=== PATIENT | female | born 1930 | race Caucasian/White ===

== ENCOUNTER 2017-10-15 15:22 | Inpatient (IN) | payer OTHER, BC ==
[~2017-10-15] VITALS: Ht 160 cm; Wt 74.2 kg
[2017-10-15 16:42] LABS: HEMATOCRIT 34.5 % (36.0-46.0); HEMOGLOBIN 10.8 G/DL (11.9-15.5); MCH 24.6 PG (29.0-34.0); MCHC 31.3 G/DL (30.0-36.0); MCV 78.6 FL (83-99); PLATELET COUNT 230 K/uL (156-360); RBC DIS.WIDTH-CV 17.6 % (11.8-14.6); RBC DIS.WIDTH-SD 49.8 % (39-53); RED BLOOD COUNT 4.39 M/uL (3.80-5.20); WHITE BLOOD COUNT 4.9 K/uL (4.1-10.2)
[2017-10-15 17:25] LABS: ALBUMIN 3.8 G/DL (3.2-4.8); CHLORIDE 102 MEQ/L (99-109); POTASSIUM 3.8 MEQ/L (3.7-5.4); SODIUM 137 MEQ/L (136-147); TOTAL BILIRUBIN 0.6 MG/DL (0.0-1.0)
[2017-10-15 17:31] LABS: ALKALINE PHOSPHATASE 95 IU/L (3-129); ALT (GPT) 15 IU/L (3-49); AST (GOT) 20 IU/L (2-34); CREATININE 1.2 MG/DL (0.6-1.3); GFR ESTIMATE (CALCULATED) 45 mL/min/; GLUCOSE 107 mg/dL (70-99); TOTAL PROTEIN 6.9 G/DL (6.4-8.3); UREA NITROGEN (BUN) 17 mg/dL (9-23)
[2017-10-15 17:35] LABS: TROP-I INTERPRETATION NEGATIVE; TROPONIN-I < 0.01 ng/mL (0.0-0.30)
[2017-10-15 17:48] LABS: ABS NEUTROPHIL COUNT 2.5; ATYPICAL LYMPHOCYTE 3.5 %; BURR CELLS 2+; EOSINOPHIL ABS CT 0; HYPOCHROMASIA 1+; LYMPHOCYTES 27.4 % (15.0-45.0); MONOCYTES 18.6 % (0-9.0); OVALOCYTES 2+; PLAT.SUFFICIENCY ADEQUATE; POIKILOCYTOSIS 2+; SEG.NEUTROPHILS 42.5 % (46.0-76.0)
[2017-10-15 18:53] LABS: APPEARANCE CLEAR ((CLEAR)); BILIRUBIN NEGATIVE; BLOOD SMALL; COLOR YELLOW ((YELLOW)); GLUCOSE (STRIP) NEGATIVE; KETONES NEGATIVE; LEUKOCYTES SMALL; NITRITE NEGATIVE; PROTEIN (STRIP) NEGATIVE; SPECIFIC GRAVITY 1.014 (1.000-1.030); UROBILINOGEN 0.2 MG/DL (0.2-1.0)
[2017-10-15] MEDS ORDERED: TOPROL XL100 MG PO (18:56)
[2017-10-15] MEDS ORDERED: ZOLOFT50 MG PO (18:56)
[2017-10-15] MEDS ORDERED: PRAVACHOL40 MG PO (18:56)
[2017-10-15] MEDS ORDERED: VITAMIN D31000 UNI2 PO (18:57)
[2017-10-15] MEDS ORDERED: COZAAR50 MG PO (18:57)
[2017-10-15] MEDS ORDERED: ATIVAN1 MG PO (18:57)
[2017-10-15] MEDS ORDERED: ASPERCREME 1035.4 GM TP (18:58)
[2017-10-15] MEDS ORDERED: VISINE DRY EYE15 ML BOTH EYES (18:58)
[2017-10-15 19:11] LABS: BACTERIA NONE SEEN /HPF; EPITHELIAL CELLS RARE /HPF; MUCUS TRACE /LPF; RED BLOOD CELLS 0-5 /HPF (0-5); UCUL ADDED? NO; WHITE BLOOD CELLS 0-5 /HPF (0-5)
[2017-10-15 19:55] LABS: INTER. NORMALIZED RATIO 1.2
[2017-10-15 22:49] VITALS: BP 143/93
[2017-10-15 22:55] LABS: MAGNESIUM 1.7 mg/dl (1.3-2.7)
[2017-10-15 23:01] LABS: HDL CHOLESTEROL 38 MG/DL (Desirable>=50); LDL CHOLESTEROL 48 mg/dL (Desirable<100); NON-HDL CHOLESTEROL 59 mg/dL (Desirable<160); TOTAL CHOLESTEROL 97 mg/dL (Desirable<200); TRIGLYCERIDES 57 MG/DL (Normal: <150)
[2017-10-15 23:09] LABS: THYROTROPIN (TSH) 3.5 MIU/L (0.4-5.5)
[2017-10-16] VITALS (7 sets, daily range): BP systolic 121–159; BP diastolic 70–104
[2017-10-16 00:51] LABS: TROP-I INTERPRETATION NEGATIVE; TROPONIN-I < 0.01 ng/mL (0.0-0.30)
[2017-10-16 06:02] LABS: HEMATOCRIT 29.8 % (36.0-46.0); HEMOGLOBIN 9.3 G/DL (11.9-15.5); MCH 24.5 PG (29.0-34.0); MCHC 31.2 G/DL (30.0-36.0); MCV 78.6 FL (83-99); PLATELET COUNT 181 K/uL (156-360); RBC DIS.WIDTH-CV 17.4 % (11.8-14.6); RBC DIS.WIDTH-SD 50.1 % (39-53); RED BLOOD COUNT 3.79 M/uL (3.80-5.20)
[2017-10-16 06:43] LABS: TROP-I INTERPRETATION NEGATIVE; TROPONIN-I < 0.01 ng/mL (0.0-0.30)
[2017-10-17 00:10] VITALS: BP 136/89
[2017-10-17 03:48] VITALS: BP 117/73
[2017-10-17 07:10] VITALS: BP 128/92
[2017-10-17] MEDS ORDERED: MS CONTIN,ORAMO15 M1 PO (11:44)
[2017-10-17] MEDS ORDERED: ELIQUIS2.5 MG PO (11:44)
== END 2017-10-17 14:11 | disposition home or self-care (01) | DRG 552 ==
LOC: EME 15:22 → EDOF 20:59 → 4EAST 20:59 → ENRESERV 21:16 → 4EAST 22:21 → ENRESERV 10-16 20:06 → CANRESERV 10-16 20:06 → ENRESERV 10-16 20:19 → 4EAST 10-17 14:11
PROVIDERS: Emergency Medicine; Hospitalist
DX: S22.088A Other fracture of T11-T12 vertebra, initial encounter for closed fracture (principal); W01.0XXA Fall on same level from slipping, tripping and stumbling without subsequent striking against object, initial encounter; I48.91 Unspecified atrial fibrillation; M51.36 Other intervertebral disc degeneration, lumbar region; R60.0 Localized edema; R26.9 Unspecified abnormalities of gait and mobility; I10 Essential (primary) hypertension; E78.5 Hyperlipidemia, unspecified; M85.861 Other specified disorders of bone density and structure, right lower leg; G89.29 Other chronic pain; D64.9 Anemia, unspecified; Z91.81 History of falling; Z86.010 Personal history of colon polyps; Z90.710 Acquired absence of both cervix and uterus
CPT/HCPCS: 71045; 71275; 72100; 72148; 73564; 80053; 80061; 81003; 83605; 83735; 83880; 84443; 84484; 85025; 85027; 85379; 85610; 87040; 93005; 99281; 99285; J1885; J2270; J7050

== ENCOUNTER 2017-11-05 13:39 | Inpatient (IN) | payer OTHER, BC ==
[~2017-11-05] VITALS: Ht 160 cm; Wt 95.9 kg
[~2017-11-05 13:39] MED LIST: ASPERCREME 1035.4 GM TP; ATIVAN1 MG PO; COZAAR50 MG PO; ELIQUIS2.5 MG PO; MS CONTIN,ORAMO15 M1 PO; PRAVACHOL40 MG PO; TOPROL XL100 MG PO; VISINE DRY EYE15 ML BOTH EYES; VITAMIN D31000 UNI2 PO; ZOLOFT50 MG PO
[2017-11-05 14:53] LABS: ALBUMIN 3.2 g/dL (3.2-4.8); CHLORIDE 103 mEq/L (99-109); POTASSIUM 4.4 mEq/L (3.7-5.4); SODIUM 136 mEq/L (136-147)
[2017-11-05 14:55] LABS: GLUCOSE 107 mg/dL (70-99)
[2017-11-05 14:56] LABS: TOTAL PROTEIN 6.2 g/dL (6.4-8.3)
[2017-11-05 14:57] LABS: TOTAL BILIRUBIN 1.8 mg/dL (0.0-1.0)
[2017-11-05 14:58] LABS: BASOPHIL (%) 0 % (0-1); EOSINOPHIL (%) 0.1 % (0-5); HEMATOCRIT 29.4 % (36.0-46.0); HEMOGLOBIN 9.5 G/DL (11.9-15.5); IMMATURE GRANULOCYTE (%) 1.9 % (0.0-0.7); LYMPHOCYTE (%) 14.3 % (15-42); LYMPHOCYTE COUNT 1.3 K/uL (1.0-2.8); MCH 23.9 PG (29.0-34.0); MCHC 32.3 G/DL (30.0-36.0); MONOCYTE (%) 29.1 % (3-12); MONOCYTE COUNT 2.6 K/uL (0-0.8); NEUTROPHIL (%) 54.6 % (45-76); NEUTROPHIL COUNT 4.9 K/uL (1.8-6.4); NRBC (%) 0.3 /100 WBC (0-0); PLATELET COUNT 156 K/uL (156-360); RBC DIS.WIDTH-CV 18.3 % (11.8-14.6); RBC DIS.WIDTH-SD 48.3 % (39-53); RED BLOOD COUNT 3.98 M/uL (3.80-5.20)
[2017-11-05 14:59] LABS: ALKALINE PHOSPHATASE 136 IU/L (3-129); CREATININE 2.4 mg/dL (0.6-1.3); GFR ESTIMATE (CALCULATED) 20 mL/min/
[2017-11-05 15:00] LABS: UREA NITROGEN (BUN) 55 mg/dL (9-23)
[2017-11-05 15:01] LABS: AST (GOT) 48 IU/L (2-34)
[2017-11-05 15:02] LABS: ALT (GPT) 42 IU/L (3-49); MCV 73.9 FL (83-99)
[2017-11-05 15:06] LABS: TROP-I INTERPRETATION NEGATIVE; TROPONIN-I < 0.01 ng/mL (0.0-0.30)
[2017-11-05] MEDS ORDERED: BUTRANS1 EAC1 TD (17:03)
[2017-11-05] MEDS ORDERED: [UNRECOGNIZED DRUG - OTHER] PO (17:06)
[2017-11-05 19:15] VITALS: BP 98/62
[2017-11-05 20:00] VITALS: BP 98/62
[2017-11-05 22:00] VITALS: BP 92/68
[2017-11-06] VITALS: BP 98/60
[2017-11-06 01:27] LABS: COMMENTS - BLOOD GASES C; DEVICE NC; O2 FLOW 4 L/MIN; SITE LR ALINE
[2017-11-06 01:28] LABS: BICARBONATE 10.9 mEq/L (22-26); CARBOXY HGB 1.2 % (0-5); O2 SATURATION (CALCULATED) 96.9 % (95-99); PCO2 26 mm Hg (35-45); PO2 165 mm Hg (80-100); pH 7.23 (7.35-7.45)
[2017-11-06 01:29] LABS: BASE EXCESS -15.2 mEq/L (-3 to +3)
[2017-11-06 01:46] LABS: CHLORIDE 104 mEq/L (99-109); HEMATOCRIT 32.1 % (36.0-46.0); HEMOGLOBIN 10.4 G/DL (11.9-15.5); MCH 24.1 PG (29.0-34.0); MCHC 32.4 G/DL (30.0-36.0); MCV 74.5 FL (83-99); NRBC (%) 0.7 /100 WBC (0-0); PLATELET COUNT 176 K/uL (156-360); RBC DIS.WIDTH-CV 18.6 % (11.8-14.6); RED BLOOD COUNT 4.31 M/uL (3.80-5.20); SODIUM 134 mEq/L (136-147); WHITE BLOOD COUNT 16.5 K/uL (4.1-10.2)
[2017-11-06 01:52] LABS: GFR ESTIMATE (CALCULATED) 16 mL/min/
[2017-11-06 01:53] LABS: UREA NITROGEN (BUN) 58 mg/dL (9-23)
[2017-11-06 01:54] LABS: TROP-I INTERPRETATION NEGATIVE; TROPONIN-I < 0.01 ng/mL (0.0-0.30)
[2017-11-06 02:00] VITALS: BP 48/32
[2017-11-06 02:06] LABS: GLUCOSE 39 mg/dL (70-99); POTASSIUM 6.1 mEq/L (3.7-5.4)
[2017-11-06 02:25] LABS: CARBOXY HGB 0.8 % (0-5); COMMENTS - BLOOD GASES VBG; O2 SATURATION (CALCULATED) 47.5 % (95-99); PCO2 38 mm Hg (35-45); PO2 31 mm Hg (80-100); SITE DISTAL CENTRAL; pH 7.16 (7.35-7.45)
[2017-11-06 02:26] LABS: BASE EXCESS -14.2 mEq/L (-3 to +3); BICARBONATE 13.5 mEq/L (22-26); METHEMOGLOBIN 0.7 % (0-1.5)
[2017-11-06 02:29] LABS: ABS NEUTROPHIL COUNT 11.7; ANISOCYTOSIS 2+; ATYPICAL LYMPHOCYTE 0.9 %; BAND NEUTROPHILS 1.8 % (0-8.0); BURR CELLS 3+; EOSINOPHIL ABS CT 0; GIANT PLATELETS 2+; MACROCYTES 2+; MONOCYTES 20.3 % (0-9.0); MYELOCYTES 1.8 %; OVALOCYTES 1+; PLAT.SUFFICIENCY ADEQUATE; POIKILOCYTOSIS 3+
[2017-11-06 03:33] LABS: APPEARANCE TURBID ((CLEAR)); BILIRUBIN NEGATIVE; BLOOD NEGATIVE; COLOR AMBER ((YELLOW)); GLUCOSE (STRIP) NEGATIVE; KETONES NEGATIVE; LEUKOCYTES NEGATIVE; NITRITE NEGATIVE; PROTEIN (STRIP) 100; SPECIFIC GRAVITY 1.015 (1.000-1.030)
[2017-11-06 03:37] LABS: BACTERIA RARE /HPF; EPITHELIAL CELLS RARE /HPF; HYALINE CASTS 30-40 /LPF; MUCUS 2+ /LPF; RED BLOOD CELLS 0-5 /HPF (0-5); UCUL ADDED? NO; WHITE BLOOD CELLS NONE SEEN /HPF (0-5)
[2017-11-06 04:00] VITALS: BP 98/68
[2017-11-06 04:34] LABS: LYMPHOCYTES 6.2 % (15.0-45.0)
[2017-11-06 04:38] LABS: COMMENTS - BLOOD GASES VBG; DEVICE NC; O2 FLOW 2 L/MIN; PCO2 33 mm Hg (35-45); PO2 37 mm Hg (80-100); SITE CENTRAL LINE; pH 7.27 (7.35-7.45)
[2017-11-06 04:39] LABS: BASE EXCESS -10.7 mEq/L (-3 to +3); BICARBONATE 15.2 mEq/L (22-26); CARBOXY HGB 1.4 % (0-5); METHEMOGLOBIN 0.7 % (0-1.5); O2 SATURATION (CALCULATED) 64.1 % (95-99)
[2017-11-06 04:40] LABS: CHLORIDE 102 mEq/L (99-109); POTASSIUM 4.9 mEq/L (3.7-5.4); SODIUM 138 mEq/L (136-147)
[2017-11-06 04:41] LABS: BASOPHIL (%) 0.1 % (0-1); EOSINOPHIL (%) 0 % (0-5); HEMATOCRIT 28.2 % (36.0-46.0); HEMOGLOBIN 9.2 G/DL (11.9-15.5); IMMATURE GRANULOCYTE (%) 4.2 % (0.0-0.7); LYMPHOCYTE (%) 1.4 % (15-42); LYMPHOCYTE COUNT 0.4 K/uL (1.0-2.8); MAGNESIUM 1.7 mg/dL (1.3-2.7); MCH 24.4 PG (29.0-34.0); MCHC 32.6 G/DL (30.0-36.0); MCV 74.8 FL (83-99); MONOCYTE (%) 28.7 % (3-12); MONOCYTE COUNT 7.1 K/uL (0-0.8); NEUTROPHIL (%) 65.6 % (45-76); NEUTROPHIL COUNT 16.2 K/uL (1.8-6.4); NRBC (%) 0.5 /100 WBC (0-0); PLATELET COUNT 155 K/uL (156-360); RBC DIS.WIDTH-CV 18.5 % (11.8-14.6); RBC DIS.WIDTH-SD 49.4 % (39-53); RED BLOOD COUNT 3.77 M/uL (3.80-5.20); WHITE BLOOD COUNT 24.8 K/uL (4.1-10.2)
[2017-11-06 04:46] LABS: CREATININE 3.1 mg/dL (0.6-1.3); GFR ESTIMATE (CALCULATED) 15 mL/min/; PHOSPHORUS 6.2 mg/dL (2.5-4.9)
[2017-11-06 04:47] LABS: UREA NITROGEN (BUN) 58 mg/dL (9-23)
[2017-11-06 04:48] LABS: GLUCOSE 114 mg/dL (70-99)
[2017-11-06 06:27] LABS: COMMENTS - BLOOD GASES VBG; DEVICE NC; O2 FLOW 2 L/MIN; PCO2 36 mm Hg (35-45); PO2 35 mm Hg (80-100); SITE CENTRAL LINE; TOTAL RESP RATE 16 resp/min; pH 7.27 (7.35-7.45)
[2017-11-06 06:28] LABS: BASE EXCESS -9.6 mEq/L (-3 to +3); BICARBONATE 16.5 mEq/L (22-26); METHEMOGLOBIN 1.1 % (0-1.5)
[2017-11-06 20:00] VITALS: BP 101/56
[2017-11-07 06:34] LABS: HEMATOCRIT 25.2 % (36.0-46.0); MCH 23.6 PG (29.0-34.0); MCHC 31.7 G/DL (30.0-36.0); MCV 74.3 FL (83-99); NRBC (%) 0.3 /100 WBC (0-0); RBC DIS.WIDTH-CV 18.4 % (11.8-14.6); RBC DIS.WIDTH-SD 48.5 % (39-53); RED BLOOD COUNT 3.39 M/uL (3.80-5.20); WHITE BLOOD COUNT 14.8 K/uL (4.1-10.2)
[2017-11-07 06:43] LABS: ALBUMIN 2.9 G/DL (3.2-4.8); ALKALINE PHOSPHATASE 169 IU/L (3-129); CHLORIDE 100 MEQ/L (99-109); CREATINE KINASE 102 IU/L (1-294); GLUCOSE 101 mg/dL (70-99); MAGNESIUM 1.9 mg/dl (1.3-2.7); PHOSPHORUS 4.7 mg/dL (2.5-4.9); POTASSIUM 4.5 MEQ/L (3.7-5.4); SODIUM 137 MEQ/L (136-147); TOTAL BILIRUBIN 2.6 MG/DL (0.0-1.0); TOTAL PROTEIN 4.7 G/DL (6.4-8.3); UREA NITROGEN (BUN) 62 mg/dL (9-23)
[2017-11-07 06:47] LABS: CREATININE 3.8 MG/DL (0.6-1.3); GFR ESTIMATE (CALCULATED) 12 mL/min/
[2017-11-07 06:57] LABS: ALT (GPT) 1417 IU/L (3-49); AST (GOT) 3566 IU/L (2-34)
[2017-11-07 07:00] VITALS: BP 115/61
[2017-11-07 07:14] LABS: BASOPHIL (%) 0.1 % (0-1); EOSINOPHIL (%) 0.1 % (0-5); IMMATURE GRANULOCYTE (%) 1.8 % (0.0-0.7); LYMPHOCYTE (%) 9.7 % (15-42); LYMPHOCYTE COUNT 1.4 K/uL (1.0-2.8); MONOCYTE (%) 19.5 % (3-12); MONOCYTE COUNT 2.9 K/uL (0-0.8); NEUTROPHIL (%) 68.8 % (45-76); NEUTROPHIL COUNT 10.2 K/uL (1.8-6.4)
[2017-11-07 07:26] LABS: PLATELET COUNT 94 K/uL (156-360)
[2017-11-08 06:26] LABS: HEMATOCRIT 25.4 % (36.0-46.0); HEMOGLOBIN 8.2 G/DL (11.9-15.5); MCH 23.6 PG (29.0-34.0); MCHC 32.3 G/DL (30.0-36.0); NRBC (%) 0.3 /100 WBC (0-0); RBC DIS.WIDTH-SD 46.8 % (39-53); RED BLOOD COUNT 3.48 M/uL (3.80-5.20); WHITE BLOOD COUNT 9.1 K/uL (4.1-10.2)
[2017-11-08 07:18] LABS: BASOPHIL (%) 0.1 % (0-1); EOSINOPHIL (%) 0.5 % (0-5); EOSINOPHIL COUNT 0.1 K/uL (0-0.3); IMMATURE GRANULOCYTE (%) 2.6 % (0.0-0.7); LYMPHOCYTE (%) 14.2 % (15-42); LYMPHOCYTE COUNT 1.3 K/uL (1.0-2.8); MONOCYTE (%) 24.2 % (3-12); MONOCYTE COUNT 2.2 K/uL (0-0.8); NEUTROPHIL (%) 58.4 % (45-76); NEUTROPHIL COUNT 5.3 K/uL (1.8-6.4); PLAT.SUFFICIENCY DECREASED; PLATELET COUNT 93 K/uL (156-360)
[2017-11-08 08:09] LABS: ALBUMIN 2.9 G/DL (3.2-4.8); ALKALINE PHOSPHATASE 155 IU/L (3-129); ALT (GPT) 834 IU/L (3-49); CHLORIDE 101 MEQ/L (99-109); CREATININE 4.4 MG/DL (0.6-1.3); GFR ESTIMATE (CALCULATED) 10 mL/min/; GLUCOSE 85 mg/dL (70-99); MAGNESIUM 1.7 mg/dl (1.3-2.7); PHOSPHORUS 4.3 mg/dL (2.5-4.9); POTASSIUM 4.2 MEQ/L (3.7-5.4); SODIUM 140 MEQ/L (136-147); TOTAL BILIRUBIN 2.5 MG/DL (0.0-1.0); TOTAL PROTEIN 4.2 G/DL (6.4-8.3); UREA NITROGEN (BUN) 73 mg/dL (9-23)
[2017-11-08 08:11] LABS: AST (GOT) 1307 IU/L (2-34)
[2017-11-08 17:04] VITALS: BP 128/89
[2017-11-08 19:00] VITALS: BP 121/87
[2017-11-08 20:00] VITALS: BP 117/83
[2017-11-08 21:00] VITALS: BP 110/68
[2017-11-08 22:00] VITALS: BP 118/75
[2017-11-08 23:00] VITALS: BP 121/71
[2017-11-09] VITALS (21 sets, daily range): BP systolic 104–137; BP diastolic 49–89
[2017-11-09 06:17] LABS: CHLORIDE 98 MEQ/L (99-109); CREATININE 4.8 MG/DL (0.6-1.3); DIRECT BILIRUBIN 1.1 mg/dL (0.0-0.3); GFR ESTIMATE (CALCULATED) 9 mL/min/; GLUCOSE 98 mg/dL (70-99); MAGNESIUM 1.8 mg/dl (1.3-2.7); POTASSIUM 4.4 MEQ/L (3.7-5.4); SODIUM 138 MEQ/L (136-147); TOTAL BILIRUBIN 2.5 MG/DL (0.0-1.0); TOTAL PROTEIN 4.8 G/DL (6.4-8.3); UREA NITROGEN (BUN) 75 mg/dL (9-23)
[2017-11-09 06:18] LABS: BASOPHIL (%) 0.1 % (0-1); EOSINOPHIL (%) 0.6 % (0-5); EOSINOPHIL COUNT 0.1 K/uL (0-0.3); HEMATOCRIT 28.3 % (36.0-46.0); HEMOGLOBIN 9.1 G/DL (11.9-15.5); IMMATURE GRANULOCYTE (%) 3.2 % (0.0-0.7); LYMPHOCYTE (%) 14.3 % (15-42); LYMPHOCYTE COUNT 1.4 K/uL (1.0-2.8); MCH 23.4 PG (29.0-34.0); MCHC 32.2 G/DL (30.0-36.0); MCV 72.8 FL (83-99); MONOCYTE (%) 27.2 % (3-12); MONOCYTE COUNT 2.6 K/uL (0-0.8); NEUTROPHIL (%) 54.6 % (45-76); NEUTROPHIL COUNT 5.2 K/uL (1.8-6.4); RBC DIS.WIDTH-CV 18.9 % (11.8-14.6); RED BLOOD COUNT 3.89 M/uL (3.80-5.20); WHITE BLOOD COUNT 9.5 K/uL (4.1-10.2)
[2017-11-09 06:24] LABS: ALKALINE PHOSPHATASE 210 IU/L (3-129); AST (GOT) 590 IU/L (2-34)
[2017-11-09 06:43] LABS: ALT (GPT) 631 IU/L (3-49)
[2017-11-09 07:01] LABS: DIGOXIN 1.1 ng/mL (0.8-2.0)
[2017-11-09 07:07] LABS: PLAT.SUFFICIENCY DECREASED; PLATELET COUNT 109 K/uL (156-360)
[2017-11-10] VITALS (11 sets, daily range): BP systolic 98–154; BP diastolic 50–94
[2017-11-10 05:53] LABS: BASOPHIL (%) 0.1 % (0-1); EOSINOPHIL (%) 0.7 % (0-5); EOSINOPHIL COUNT 0.1 K/uL (0-0.3); HEMATOCRIT 28.7 % (36.0-46.0); HEMOGLOBIN 9.2 G/DL (11.9-15.5); IMMATURE GRANULOCYTE (%) 3.5 % (0.0-0.7); LYMPHOCYTE (%) 13.7 % (15-42); LYMPHOCYTE COUNT 1.5 K/uL (1.0-2.8); MCH 23.4 PG (29.0-34.0); MCHC 32.1 G/DL (30.0-36.0); MCV 72.8 FL (83-99); MONOCYTE COUNT 3.6 K/uL (0-0.8); NEUTROPHIL COUNT 5.6 K/uL (1.8-6.4); NRBC (%) 0.2 /100 WBC (0-0); PLATELET COUNT 127 K/uL (156-360); RBC DIS.WIDTH-CV 18.6 % (11.8-14.6); RBC DIS.WIDTH-SD 48.3 % (39-53); RED BLOOD COUNT 3.94 M/uL (3.80-5.20); WHITE BLOOD COUNT 11.3 K/uL (4.1-10.2)
[2017-11-10 06:23] LABS: ALBUMIN 2.7 G/DL (3.2-4.8); ALKALINE PHOSPHATASE 193 IU/L (3-129); ALT (GPT) 429 IU/L (3-49); CHLORIDE 100 MEQ/L (99-109); CHLORIDE 99 MEQ/L (99-109); CREATININE 4.6 MG/DL (0.6-1.3); CREATININE 4.9 MG/DL (0.6-1.3); GFR ESTIMATE (CALCULATED) 10 mL/min/; GFR ESTIMATE (CALCULATED) 9 mL/min/; GLUCOSE 131 mg/dL (70-99); GLUCOSE 137 mg/dL (70-99); POTASSIUM 3.6 MEQ/L (3.7-5.4); SODIUM 138 MEQ/L (136-147); SODIUM 140 MEQ/L (136-147); TOTAL PROTEIN 4.5 G/DL (6.4-8.3); UREA NITROGEN (BUN) 70 mg/dL (9-23); UREA NITROGEN (BUN) 71 mg/dL (9-23)
[2017-11-10 06:29] LABS: POTASSIUM 3.4 MEQ/L (3.7-5.4)
[2017-11-10 06:30] LABS: AST (GOT) 242 IU/L (2-34)
[2017-11-11] VITALS (8 sets, daily range): BP systolic 122–140; BP diastolic 60–79
[2017-11-11 06:13] LABS: BASOPHIL (%) 0.1 % (0-1); EOSINOPHIL (%) 0.8 % (0-5); EOSINOPHIL COUNT 0.1 K/uL (0-0.3); HEMATOCRIT 24.2 % (36.0-46.0); HEMOGLOBIN 7.8 G/DL (11.9-15.5); IMMATURE GRANULOCYTE (%) 2.3 % (0.0-0.7); LYMPHOCYTE (%) 13.1 % (15-42); LYMPHOCYTE COUNT 1.2 K/uL (1.0-2.8); MCH 23.4 PG (29.0-34.0); MCHC 32.2 G/DL (30.0-36.0); MCV 72.7 FL (83-99); MONOCYTE (%) 40.3 % (3-12); MONOCYTE COUNT 3.7 K/uL (0-0.8); NEUTROPHIL (%) 43.4 % (45-76); PLATELET COUNT 115 K/uL (156-360); RBC DIS.WIDTH-CV 18.6 % (11.8-14.6); RBC DIS.WIDTH-SD 47.5 % (39-53); RED BLOOD COUNT 3.33 M/uL (3.80-5.20); WHITE BLOOD COUNT 9.1 K/uL (4.1-10.2)
[2017-11-11 06:15] LABS: CHLORIDE 100 MEQ/L (99-109); CREATININE 4.4 MG/DL (0.6-1.3); GFR ESTIMATE (CALCULATED) 10 mL/min/; GLUCOSE 117 mg/dL (70-99); POTASSIUM 3.2 MEQ/L (3.7-5.4); SODIUM 140 MEQ/L (136-147); UREA NITROGEN (BUN) 67 mg/dL (9-23)
[2017-11-11 13:55] LABS: Heparin Induced Plt Ab Negative (Negative)
[2017-11-12 03:55] VITALS: BP 128/68
[2017-11-12 05:59] LABS: BASOPHIL (%) 0.1 % (0-1); EOSINOPHIL (%) 1.3 % (0-5); EOSINOPHIL COUNT 0.1 K/uL (0-0.3); HEMATOCRIT 24.2 % (36.0-46.0); HEMOGLOBIN 7.8 G/DL (11.9-15.5); IMMATURE GRANULOCYTE (%) 2.3 % (0.0-0.7); LYMPHOCYTE (%) 14.6 % (15-42); LYMPHOCYTE COUNT 1.4 K/uL (1.0-2.8); MCH 23.4 PG (29.0-34.0); MCHC 32.2 G/DL (30.0-36.0); MCV 72.7 FL (83-99); MONOCYTE (%) 37.9 % (3-12); MONOCYTE COUNT 3.6 K/uL (0-0.8); NEUTROPHIL (%) 43.8 % (45-76); NEUTROPHIL COUNT 4.1 K/uL (1.8-6.4); RBC DIS.WIDTH-CV 19.2 % (11.8-14.6); RBC DIS.WIDTH-SD 49.1 % (39-53); RED BLOOD COUNT 3.33 M/uL (3.80-5.20); WHITE BLOOD COUNT 9.5 K/uL (4.1-10.2)
[2017-11-12 06:03] LABS: CHLORIDE 100 MEQ/L (99-109); CREATININE 3.7 MG/DL (0.6-1.3); GFR ESTIMATE (CALCULATED) 12 mL/min/; GLUCOSE 104 mg/dL (70-99); IRON 24 MCG/DL (35-150); POTASSIUM 3.2 MEQ/L (3.7-5.4); SODIUM 140 MEQ/L (136-147); TRANSFERRIN (TIBC) 206.5 mg/dL (215-380); TRANSFERRIN SATUR. 12 % (20-55); UREA NITROGEN (BUN) 56 mg/dL (9-23)
[2017-11-12 06:30] LABS: PLAT.SUFFICIENCY DECREASED; PLATELET COUNT 129 K/uL (156-360)
[2017-11-12 07:44] VITALS: BP 133/77
[2017-11-12 11:58] VITALS: BP 157/96
[2017-11-12 14:36] VITALS: BP 139/70
[2017-11-12 17:59] LABS: UFH SRA Result Negative (Negative)
[2017-11-12 19:20] VITALS: BP 149/78
[2017-11-12 23:25] VITALS: BP 143/72
[2017-11-13 03:41] VITALS: BP 136/82
[2017-11-13 05:10] LABS: BASOPHIL (%) 0 % (0-1); EOSINOPHIL (%) 0.8 % (0-5); EOSINOPHIL COUNT 0.1 K/uL (0-0.3); HEMATOCRIT 24.8 % (36.0-46.0); HEMOGLOBIN 7.8 G/DL (11.9-15.5); IMMATURE GRANULOCYTE (%) 2.4 % (0.0-0.7); LYMPHOCYTE (%) 15.6 % (15-42); LYMPHOCYTE COUNT 1.4 K/uL (1.0-2.8); MCH 23.1 PG (29.0-34.0); MCHC 31.5 G/DL (30.0-36.0); MCV 73.6 FL (83-99); MONOCYTE (%) 39.6 % (3-12); MONOCYTE COUNT 3.6 K/uL (0-0.8); NEUTROPHIL (%) 41.6 % (45-76); NEUTROPHIL COUNT 3.8 K/uL (1.8-6.4); PLATELET COUNT 144 K/uL (156-360); RBC DIS.WIDTH-CV 19.7 % (11.8-14.6); RBC DIS.WIDTH-SD 49.8 % (39-53); RED BLOOD COUNT 3.37 M/uL (3.80-5.20); WHITE BLOOD COUNT 9.1 K/uL (4.1-10.2)
[2017-11-13 06:09] LABS: CHLORIDE 102 MEQ/L (99-109); CREATININE 3.1 MG/DL (0.6-1.3); GFR ESTIMATE (CALCULATED) 15 mL/min/; GLUCOSE 118 mg/dL (70-99); PHOSPHORUS 3.6 mg/dL (2.5-4.9); POTASSIUM 3.2 MEQ/L (3.7-5.4); SODIUM 141 MEQ/L (136-147); UREA NITROGEN (BUN) 46 mg/dL (9-23)
[2017-11-13 06:11] LABS: MAGNESIUM 1.3 mg/dl (1.3-2.7)
[2017-11-13 07:33] VITALS: BP 130/76
[2017-11-13 11:31] VITALS: BP 141/84
[2017-11-13 15:37] VITALS: BP 131/79
[2017-11-13 19:21] VITALS: BP 140/68
[2017-11-13 23:33] VITALS: BP 136/64
[2017-11-14 03:18] VITALS: BP 135/80
[2017-11-14 04:20] VITALS: BP 182/90
[2017-11-14 06:48] LABS: BASOPHIL (%) 0.1 % (0-1); EOSINOPHIL (%) 1.1 % (0-5); EOSINOPHIL COUNT 0.1 K/uL (0-0.3); HEMATOCRIT 25.2 % (36.0-46.0); HEMOGLOBIN 7.9 G/DL (11.9-15.5); IMMATURE GRANULOCYTE (%) 3.9 % (0.0-0.7); LYMPHOCYTE (%) 21.4 % (15-42); LYMPHOCYTE COUNT 1.6 K/uL (1.0-2.8); MCH 23.3 PG (29.0-34.0); MCHC 31.3 G/DL (30.0-36.0); MCV 74.3 FL (83-99); MONOCYTE (%) 35.8 % (3-12); MONOCYTE COUNT 2.6 K/uL (0-0.8); NEUTROPHIL (%) 37.7 % (45-76); NEUTROPHIL COUNT 2.7 K/uL (1.8-6.4); PLATELET COUNT 150 K/uL (156-360); RBC DIS.WIDTH-CV 20.2 % (11.8-14.6); RBC DIS.WIDTH-SD 53.1 % (39-53); RED BLOOD COUNT 3.39 M/uL (3.80-5.20); WHITE BLOOD COUNT 7.2 K/uL (4.1-10.2)
[2017-11-14 06:58] LABS: CHLORIDE 104 MEQ/L (99-109); CREATININE 2.8 MG/DL (0.6-1.3); GFR ESTIMATE (CALCULATED) 17 mL/min/; GLUCOSE 90 mg/dL (70-99); PHOSPHORUS 3.5 mg/dL (2.5-4.9); SODIUM 140 MEQ/L (136-147); UREA NITROGEN (BUN) 44 mg/dL (9-23)
[2017-11-14 07:00] LABS: POTASSIUM 4.1 MEQ/L (3.7-5.4)
[2017-11-14 07:35] VITALS: BP 132/90
[2017-11-14 11:05] VITALS: BP 144/80
[2017-11-14] MEDS ORDERED: KLOR-CON M2020 MEQ PO (13:29)
[2017-11-14] MEDS ORDERED: CORDARONE200 MG PO (13:29)
[2017-11-14 16:30] VITALS: BP 128/82
== END 2017-11-14 18:41 | DRG 291 ==
LOC: EME 13:39 → 4WEST 16:35 → EDOF 16:35 → ENRESERV 16:44 → 4WEST 18:39 → ENRESERV 11-09 17:44 → 4WEST 11-09 18:35 → ENRESERV 11-11 12:13 → CANRESERV 11-11 12:13 → ENRESERV 11-11 12:29 → 2EAST 11-11 14:40
PROVIDERS: Emergency Medicine; Internal Medicine Critical Care Medicine; Internal Medicine Nephrology; Specialist
DX: R57.0 Cardiogenic shock (principal); I48.1 Persistent atrial fibrillation; N17.0 Acute kidney failure with tubular necrosis; K72.00 Acute and subacute hepatic failure without coma; R78.81 Bacteremia; I13.0 Hypertensive heart and chronic kidney disease with heart failure and stage 1 through stage 4 chronic kidney disease, or unspecified chronic kidney disease; I50.30 Unspecified diastolic (congestive) heart failure; N18.3 Chronic kidney disease, stage 3 (moderate); K75.89 Other specified inflammatory liver diseases; R74.0 Nonspecific elevation of levels of transaminase and lactic acid dehydrogenase [LDH]; E87.2 Acidosis; E87.6 Hypokalemia; D63.1 Anemia in chronic kidney disease; E83.39 Other disorders of phosphorus metabolism; I27.20 Pulmonary hypertension, unspecified; G89.29 Other chronic pain; M54.9 Dorsalgia, unspecified; E78.5 Hyperlipidemia, unspecified; R29.6 Repeated falls; R00.0 Tachycardia, unspecified; Z66 Do not resuscitate; Z86.010 Personal history of colon polyps; Z91.81 History of falling
CPT/HCPCS: 36600; 70450; 71045; 73590; 73630; 76705; 76770; 80048; 80048 91; 80053; 80076; 80162; 80202; 81003; 82330; 82550; 82570; 82803; 82948; 83540; 83605; 83735; 83880; 84100; 84300; 84466; 84484; 85025; 85025 91; 85027; 85610; 85730; 86022 90; 86850; 86900; 86901; 87040; 87076; 87185; 87641; 87801; 93005; 93306; 94760; 94799; 97530 GP; 99281; 99285; A6214; C1751; J0171; J0295; J0881; J1160; J1250; J1644; J1940; J2405; J2543; J3010; J3370; J7050; J7070; P9047